=== PATIENT | male | born 1980 | race Two or more races ===

== ENCOUNTER 2025-04-15 18:00 | Inpatient (IN) | payer OTHER ==
[~2025-04-15] VITALS: Ht 175.3 cm; Wt 104.3 kg
[2025-04-15] MEDS ORDERED: KETOROLAC TROMETHAMINE 15 MG/ML VIAL ONE (18:16)
[2025-04-15] MEDS ORDERED: dexaMETHasone SOD PHOSPHATE 1 ML ONE (18:16)
[2025-04-15] MEDS ORDERED: HYDROMORPHONE 1 MG/1 ML DISP.SYRIN ONE (18:16)
[2025-04-15] MEDS ORDERED: ONDANSETRON HCL/PF 4 MG/2 ML VIAL ONE ×2 (18:16→23:10)
[2025-04-15] MEDS: KETOROLAC TROMETHAMINE 15 MG/ML VIAL IV ONE (18:30)
[2025-04-15] MEDS: HYDROMORPHONE INJ 2 MG/ML DISP.SYRIN IV ONE (18:30)
[2025-04-15] MEDS: ONDANSETRON HCL/PF 4 MG/2 ML VIAL IVP ONE (18:30)
[2025-04-15] MEDS: dexaMETHasone SOD PHOSPHATE 10 MG/ML VIAL IV ONE (18:30)
[2025-04-15] MEDS ORDERED: MAG HYDROX/AL HYDROX/SIMETH 30 ML UDC PO PRN (21:00)
[2025-04-15] MEDS ORDERED: ACETAMINOPHEN 325 MG TABLET PO PRN (21:00)
[2025-04-15] MEDS ORDERED: MAGNESIUM HYDROXIDE 30 ML UDC PO PRN (21:00)
[2025-04-15] MEDS ORDERED: MORPHINE SULFATE INJ 2 MG/ML DISP.SYRIN ONE (23:11)
[2025-04-15] MEDS ORDERED: METHOCARBAMOL (500MG) 500 MG TABLET ONE (23:11)
[2025-04-15] MEDS: METHOCARBAMOL (500MG) 500 MG TABLET PO SCH (23:19)
[2025-04-15] MEDS: MORPHINE SULFATE INJ 2 MG/ML DISP.SYRIN IV PRN (23:19)
[2025-04-15] MEDS: ONDANSETRON HCL/PF 4 MG/2 ML VIAL IVP PRN (23:20)
[2025-04-16 01:28] LABS: PLATELET COUNT (AUTO) 203 K/uL (150-450); RED BLOOD CELL COUNT(AUTO) 5.45 MIL/uL (4.5-6.0); RED CELL DISTRIBUTION WIDTH 13.2 % (11.5-15.0); WHITE BLOOD COUNT (AUTO) 9.7 K/uL (4.3-11.0)
[2025-04-16 01:33] LABS: ASPARTATE AMINOTRANSFERASE 8.0 U/L (15-37); CALCIUM, SERUM 9.3 mg/dL (8.5-10.1); CREATININE 0.9 mg/dL (0.6-1.3); PHOSPHORUS 4.5 mg/dL (2.5-4.9); SODIUM SERUM 137.0 mmol/L (136-145); TOTAL PROTEIN, SERUM 7.4 g/dL (6.4-8.2); UREA NITROGEN, BLOOD 33.0 mg/dL (7-18)
[2025-04-16] MEDS ORDERED: MORPHINE SULFATE INJ 2 MG/ML DISP.SYRIN ONE (04:53)
[2025-04-16] MEDS ORDERED: ONDANSETRON HCL/PF 4 MG/2 ML VIAL ONE (04:53)
[2025-04-16 08:25] VITALS: O2SAT 97
[2025-04-16] MEDS ORDERED: GABA300C PO (08:30)
[2025-04-16] MEDS: PANTOPRAZOLE 40 MG TABLET.DR PO SCH (08:35)
[2025-04-16 10:49] VITALS: BP 123/72; TEMP 97.7; O2SAT 97
[2025-04-16 11:23] LABS: PLATELET COUNT (AUTO) 208 K/uL (150-450); RED BLOOD CELL COUNT(AUTO) 5.27 MIL/uL (4.5-6.0); RED CELL DISTRIBUTION WIDTH 13.1 % (11.5-15.0); WHITE BLOOD COUNT (AUTO) 11.5 K/uL (4.3-11.0)
[2025-04-16 11:49] LABS: CALCIUM, SERUM 8.7 mg/dL (8.5-10.1); CREATININE 0.8 mg/dL (0.6-1.3); PHOSPHORUS 4.4 mg/dL (2.5-4.9); SODIUM SERUM 136.0 mmol/L (136-145); UREA NITROGEN, BLOOD 29.0 mg/dL (7-18)
[2025-04-16] MEDS ORDERED: METH4TAB17 PO (13:01)
[2025-04-16] MEDS ORDERED: PANT40TA2 PO (13:01)
[2025-04-16] MEDS ORDERED: GABA-536 PO (13:01)
[2025-04-16] MEDS ORDERED: CELE200C PO (13:01)
[2025-04-16] MEDS: dexaMETHasone SOD PHOSPHATE 4 MG/ML VIAL IM ONE (13:33)
== END 2025-04-16 18:04 | disposition home or self-care (01) | DRG 552 ==
LOC: ER 18:03 → MED 04-16 07:58
PROVIDERS: ADMIT Surgery Vascular Surgery; ATTEND Nurse Practitioner Acute Care
DX: M51.16 Intervertebral disc disorders with radiculopathy, lumbar region (principal); E66.9 Obesity, unspecified; Z68.34 Body mass index [BMI] 34.0-34.9, adult; R26.9 Unspecified abnormalities of gait and mobility
CPT/HCPCS: 36415; 72110-TC; 80048-TC; 80076-TC; 83735-TC; 84100-TC; 84443-TC; 85025-TC; 97110-TC; 97116-TC; 97530-TC; G0378; J1100; J1171; J1885; J2270; J2405

== ENCOUNTER 2025-04-18 10:58 | Inpatient (IN) | payer OTHER ==
[~2025-04-18] VITALS: Ht 175.3 cm; Wt 90.7 kg
[~2025-04-18 10:58] MED LIST: CELE200C PO; GABA-536 PO; GABA300C PO; METH4TAB17 PO; PANT40TA2 PO
[2025-04-18] MEDS ORDERED: KETOROLAC TROMETHAMINE INJ 30 MG/ML VIAL ONE (11:37)
[2025-04-18] MEDS ORDERED: BACLOFEN (10 MG) 10 MG TABLET ONE (11:38)
[2025-04-18] MEDS: BACLOFEN (10 MG) 10 MG TABLET PO ONE (11:50)
[2025-04-18] MEDS: KETOROLAC TROMETHAMINE INJ 30 MG/ML VIAL IV ONE (11:50)
[2025-04-18] MEDS: KETAMINE HCL(200MG/20ML) 10 MG/ML VIAL IV ONE (12:00)
[2025-04-18] MEDS: IV NS 0.9% 500 ML IV ONE (12:13)
[2025-04-18 13:01] LABS: PLATELET COUNT (AUTO) 175 K/uL (150-450); RED BLOOD CELL COUNT(AUTO) 5.11 MIL/uL (4.5-6.0); RED CELL DISTRIBUTION WIDTH 13.4 % (11.5-15.0); WHITE BLOOD COUNT (AUTO) 10.5 K/uL (4.3-11.0)
[2025-04-18 13:11] LABS: CALCIUM, SERUM 8.5 mg/dL (8.5-10.1); CREATININE 0.7 mg/dL (0.6-1.3); SODIUM SERUM 141.0 mmol/L (136-145); UREA NITROGEN, BLOOD 35.0 mg/dL (7-18)
[2025-04-18] MEDS ORDERED: PANT40TA49 PO (13:11)
[2025-04-18] MEDS ORDERED: CELE200C PO (13:11)
[2025-04-18] MEDS ORDERED: GABA-536 PO (13:11)
[2025-04-18] MEDS ORDERED: METH4TAB17 PO (13:11)
[2025-04-18] MEDS ORDERED: MAG HYDROX/AL HYDROX/SIMETH 30 ML UDC PO PRN (15:00)
[2025-04-18] MEDS ORDERED: MAGNESIUM HYDROXIDE 30 ML UDC PO PRN (15:00)
[2025-04-18] MEDS ORDERED: ONDANSETRON HCL/PF 4 MG/2 ML VIAL IVP PRN (15:00)
[2025-04-18] MEDS ORDERED: ACETAMINOPHEN 325 MG TABLET PO PRN (15:00)
[2025-04-18] MEDS ORDERED: Z GUARD REMEDY 4 OZ OINT TP PRN (15:00)
[2025-04-18] MEDS: GABAPENTIN 400 MG CAPSULE PO SCH (17:00)
[2025-04-18 18:31] VITALS: BP 136/88; TEMP 98; O2SAT 96
[2025-04-18 20:00] VITALS: BP 129/75; TEMP 98.2; O2SAT 94
[2025-04-18] MEDS ORDERED: KETOROLAC TROMETHAMINE 15 MG/ML VIAL ONE (23:20)
[2025-04-18] MEDS: KETOROLAC TROMETHAMINE 15 MG/ML VIAL IV SCH (23:27)
[2025-04-19 04:00] VITALS: BP 123/71; TEMP 98.1; O2SAT 99
[2025-04-19] MEDS ORDERED: KETOROLAC TROMETHAMINE 15 MG/ML VIAL ONE (05:56)
[2025-04-19 07:09] LABS: PLATELET COUNT (AUTO) 187 K/uL (150-450); RED BLOOD CELL COUNT(AUTO) 4.97 MIL/uL (4.5-6.0); RED CELL DISTRIBUTION WIDTH 13.5 % (11.5-15.0); WHITE BLOOD COUNT (AUTO) 11.6 K/uL (4.3-11.0)
[2025-04-19 07:30] VITALS: BP 131/78; TEMP 97.9; O2SAT 98
[2025-04-19 07:33] LABS: CALCIUM, SERUM 9.1 mg/dL (8.5-10.1); CREATININE 0.9 mg/dL (0.6-1.3); PHOSPHORUS 4.1 mg/dL (2.5-4.9); SODIUM SERUM 142.0 mmol/L (136-145); UREA NITROGEN, BLOOD 43.0 mg/dL (7-18)
[2025-04-19 08:00] VITALS: BP 131/78; TEMP 97.9; O2SAT 98
[2025-04-19] MEDS: PANTOPRAZOLE 40 MG TABLET.DR PO SCH (08:34)
[2025-04-19] MEDS ORDERED: CELECOXIB 100 MG CAPSULE PO SCH (09:00)
[2025-04-19] MEDS: KETOROLAC TROMETHAMINE INJ 30 MG/ML VIAL IV SCH (12:28)
[2025-04-19 16:00] VITALS: BP 132/80; TEMP 98.2; O2SAT 96
[2025-04-19 20:00] VITALS: BP 123/75; TEMP 98.1; O2SAT 96
== END 2025-04-19 22:15 | disposition home or self-care (01) | DRG 552 ==
LOC: ER 11:06 → MEDSG1 17:20
PROVIDERS: ADMIT Internal Medicine; ATTEND Nurse Practitioner Family
DX: M51.17 Intervertebral disc disorders with radiculopathy, lumbosacral region (principal); G89.29 Other chronic pain; Z79.899 Other long term (current) drug therapy; M48.07 Spinal stenosis, lumbosacral region; M51.372 Other intervertebral disc degeneration, lumbosacral region with discogenic back pain and lower extremity pain
CPT/HCPCS: 36415; 72148-TC; 80048-TC; 83735-TC; 84100-TC; 85025-TC; G0378; J1885; J2919; J7040